=== PATIENT | female | born 1980 | race Caucasian/White ===

== ENCOUNTER 2024-03-01 02:59 | Emergency (ER) | payer OTHER, SELFPAY ==
[2024-03-01 03:01] VITALS: BP 108/66
[2024-03-01 03:40] VITALS: BMI 19.3
[2024-03-01 03:50] VITALS: BP 106/80
[2024-03-01 03:57] LABS: Urine Albumin Negative (Neg - Trace); Urine Bilirubin Negative (Negative); Urine Character Clear (Clear); Urine Color Yellow; Urine Glucose Negative (Negative); Urine Ketone Negative (Negative); Urine Leukocyte Negative (Negative); Urine Nitrite Negative (Negative); Urine Occult Blood 2+ (Negative); Urine Specific Gravity 1.015 (<1.030); Urine Urobilinogen Negative (Neg - 1+)
[2024-03-01 03:57] LABS: % Basophils 0.7 % (0-2); % Eosinophils 0.9 % (0-6); % Immature Granulocytes 0.4 % (0-0.5); % Lymphocytes 19.7 % (20.5-51.1); % Neutrophils 72.3 % (42.2-75.2); Absolute Basophils 0.1 10^3/uL (0-0.2); Absolute Eosinophils 0.1 10^3/uL (0-0.7); Absolute Lymphocytes 1.4 10^3/uL (1.2-3.4); Absolute Monocytes 0.4 10^3/uL (0.1-0.6); Hematocrit 34.5 % (37.0-47.0); Hemoglobin 12.2 g/dL (12.0-16.0); Mean Corp Hgb Conc. 35.4 g/dL (33.0-37.0); Mean Corpuscular Hgb 28.7 pg (27.0-31.0); Mean Corpuscular Volume 81.2 fL (81.0-99.0); Mean Platelet Volume 10.7 fL (7.4-10.4); Nucleated Red Blood Cells % 0 %; Platelet Count 252 10^3/uL (130-400); Red Blood Cell Count 4.25 10^6/uL (4.20-5.40); Red Cell Dist. Width 13.3 % (11.5-14.5); White Blood Cell Count 6.9 10^3/uL (4.8-10.8)
--- NOTE | 2024-03-01 03:58 | EDRN ---
Pt did not eat lunch yesterday. Pt developed abdominal pain around her belly button up to mid abdomen around [id number]. Pt thought it might be from not eating lunch. For dinner, pt ate corn, quinoa salad and a cheeseburger. Eating did not
alleviate abdominal discomfort. Pain was minimal throughout the day with no n/v. Pt was watching a movie around 0130 when pain increased and felt like labor contractions and pt felt nauseous and broke into a sweat. Pt tried to go to bed but pain
was too intense. Pain is worse when she stands. Pain waxes and wanes, dull pressure when it lessens and like labor contractions when pain intensifies. Pt has been passing gas. Pt denies cp, sob, nausea now, vomiting, diarrhea/constipation,
urinary symptoms, fever/cough, change in appetite.
[2024-03-01 03:59] LABS: HCG, Urine Qualitative Screen Negative
[2024-03-01 04:15] LABS: ALT (SGPT) 20 U/L (0-35); AST (SGOT) 28 U/L (14-36); Albumin 4.3 g/dl (3.5-5.0); Alkaline Phosphatase 44 U/L (38-126); Blood Urea Nitrogen 23 mg/dl (7-17); Calcium 9.3 mg/dl (8.4-10.2); Carbon Dioxide 28 mmol/L (22-30); Chloride 106 mmol/L (98-107); Estimated Creatinine Clearance 69 ml/min; Glucose 103 mg/dl (70-99); Lipase 182 U/L (23-300); Sodium 139 mmol/L (135-145); Total Bilirubin 1.7 mg/dl (0.2-1.3); Total Protein 6.5 g/dl (6.3-8.2); eGFR > 60.00
[2024-03-01 04:23] LABS: Urine Squamous Cell 16-20 /LPF (Few)
[2024-03-01 04:24] LABS: Urine Bacteria Few (Negative); Urine Red Blood Cell 0-2 /HPF (0-2); Urine White Cell 0-2 /HPF (0-5)
--- NOTE | 2024-03-01 04:40 | ED.GENMED ---
History of Present Illness
<IVY Ellis - Last Filed: 03/01/24 06:17>
General
Chief Complaint: Abdominal Pain
Source: patient
Exam Limitations: none
Time Seen by Provider: 03/01/24 04:40
Nursing documentation reviewed up to this point in time: agreed with
History of Present Illness
History of Present Illness:
43 year old female presents for evaluation of abdominal pain. Pt reports that her sx began 12 hours ago and have gradually worsened. She was awoken from sleep at 0130 on 03/01 due to the pain. Pt describes her pain as a tightness in her epigastric
region as well as RLQ, and currently rates her pain as 6/10. Pain is slightly relieved by lying supine, and is not exacerbated with meals. Pt has not tried any medications for her sx. She admits to associated intermittent nausea but denies vomiting.
Pt also denies constipation, diarrhea, fever, anorexia, chills, fatigue, and fever.
Review of Systems
<IVY Ellis - Last Filed: 03/01/24 06:17>
Review of Systems
Allergies reviewed?: Yes
Constitutional: Reports no symptoms
EENT: Reports no symptoms
Respiratory: Reports no symptoms
Cardiac: Reports no symptoms
ABD/GI: Reports abdominal pain (epigastric and RLQ) and nausea
: Reports no symptoms
Musculoskeletal: Reports no symptoms
Skin: Reports no symptoms
Neurological: Reports no symptoms
Endocrine: Reports no symptoms
Hematologic/Lymphatic: Reports no symptoms
Psychiatric: Reports no symptoms
Phy Exam
<IVY Ellis - Last Filed: 03/01/24 06:17>
General Physical Exam
General Presentation: well appearing and no apparent distress
General age: appears stated age
General Skin: warm
General Habitus: normal
General Mental: alert
General Hydration: appears well hydrated
Cardiovascular Exam
Cardiovascular Exam: regular rate/rhythm and no murmur
Pulmonary Exam
Pulmonary Exam: lungs clear and no respiratory distress
Gastrointestinal Exam
Gastrointestinal Exam: normal bowel sounds, non distended, no masses and tender (TTP of epigastric region as well as RLQ)
Palpation: right lower quadrant: Mild tenderness
Auscultation of Abdomen: normal
Neurological Exam
Neurological Exam: alert and oriented x3
Skin Exam
Skin Exam: normal color and warm/dry
Course
<ST CalebWI - Last Filed: 03/01/24 06:17>
Orders/Labs/Results
Orders:
Orders
03/01/24 03:38
IV Insert/Care/Rem.- Treatment PRN
03/01/24 03:39
Test Result ONCE
03/01/24 03:40
HCG, Urine Qualitative Screen Urgent
Date Specimen was Collected: 03/01/24
Time Specimen was Collected: 03:39
Urinalysis Reflex To Culture Urgent
Date Specimen was Collected: 03/01/24
Time Specimen was Collected: 03:39
Urine Microscopic Reflex Cult Urgent
03/01/24 03:46
Complete Blood Count/With Diff Urgent
Comprehensive Metabolic Panel Urgent
Lipase Urgent
03/01/24 05:02
CT Abd/pelvis W Iv Cont Urgent
Comment:
Reason For Exam: acute upper abd pain rad to RLQ
Abnormal Lab Results
03/01/24 03/01/24
03:40 03:46
Hct 34.5 L %
(37.0-47.0)
MPV 10.7 H fL
(7.4-10.4)
Lymphocytes % 19.7 L %
(20.5-51.1)
BUN 23 H mg/dl
(7-17)
Glucose 103 H mg/dl
(70-99)
Total Bilirubin 1.7 H mg/dl
(0.2-1.3)
Ur Occult Blood Reflex 2+ A
(Negative)
Urine Bacteria (Reflex) Few A
(Negative)
03/01/24 03:46
03/01/24 03:46
Vital Signs
Initial and Last Documented VS:
Initial Vital Signs
Temp Pulse Resp BP Pulse Ox
98.3 F 68 22 108/66 100
03/01/24 03:01 03/01/24 03:01 03/01/24 03:01 03/01/24 03:01 03/01/24 03:01
Last Documented Vital Signs
Temp Pulse Resp BP Pulse Ox
98.3 F 64 16 91/57 97
03/01/24 03:01 03/01/24 05:53 03/01/24 05:53 03/01/24 05:53 03/01/24 05:53
<Bouchra Soliz DO - Last Filed: 03/01/24 06:18>
Orders/Labs/Results
Orders:
Orders
03/01/24 03:38
IV Insert/Care/Rem.- Treatment PRN
03/01/24 03:39
Test Result ONCE
03/01/24 03:40
HCG, Urine Qualitative Screen Urgent
Date Specimen was Collected: 03/01/24
Time Specimen was Collected: 03:39
Urinalysis Reflex To Culture Urgent
Date Specimen was Collected: 03/01/24
Time Specimen was Collected: 03:39
Urine Microscopic Reflex Cult Urgent
03/01/24 03:46
Complete Blood Count/With Diff Urgent
Comprehensive Metabolic Panel Urgent
Lipase Urgent
03/01/24 05:02
CT Abd/pelvis W Iv Cont Urgent
Comment:
Reason For Exam: acute upper abd pain rad to RLQ
Abnormal Lab Results
03/01/24 03/01/24
03:40 03:46
Hct 34.5 L %
(37.0-47.0)
MPV 10.7 H fL
(7.4-10.4)
Lymphocytes % 19.7 L %
(20.5-51.1)
BUN 23 H mg/dl
(7-17)
Glucose 103 H mg/dl
(70-99)
Total Bilirubin 1.7 H mg/dl
(0.2-1.3)
Ur Occult Blood Reflex 2+ A
(Negative)
Urine Bacteria (Reflex) Few A
(Negative)
03/01/24 03:46
03/01/24 03:46
Vital Signs
Initial and Last Documented VS:
Initial Vital Signs
Temp Pulse Resp BP Pulse Ox
98.3 F 68 22 108/66 100
03/01/24 03:01 03/01/24 03:01 03/01/24 03:01 03/01/24 03:01 03/01/24 03:01
Last Documented Vital Signs
Temp Pulse Resp BP Pulse Ox
98.3 F 64 16 91/57 97
03/01/24 03:01 03/01/24 05:53 03/01/24 05:53 03/01/24 05:53 03/01/24 05:53
<IVY Ellis - Last Filed: 03/01/24 06:17>
MDM/Problems Addressed
Differential Diagnosis Includes:
appendicitis, cholecystitis, gastritis, IBS, constipation
<IVY Ellis - Last Filed: 03/01/24 06:17>
*Critical Care Note
Total Time (30-74mins, 75-104mins- exclusive of procedures): Not Applicable
<Bouchra Soliz DO - Last Filed: 03/01/24 06:18>
*Radiology
Radiology exam reviewed: radiology read reviewed (CAT scan shows normal appendix. No bowel obstruction. Gastric and small bowel wall thickening suggesting gastroenteritis.)
*Pulse Oximetry
Patient hypoxic: no
*Critical Care Note
Total Time (30-74mins, 75-104mins- exclusive of procedures): Not Applicable
ED Attending Note
<IVY Ellis - Last Filed: 03/01/24 06:17>
-
Portions of this chart may have been created with voice recognition software.� Occasional wrong word or��sound alike� substitutions may have occurred due to the inherent limitations of voice recognition software.
<Bouchra Soliz DO - Last Filed: 03/01/24 06:18>
ED Attending Note
Patient seen and examined by attending physician: Yes
ED Attending Note:
This is a 43-year-old woman who has no significant past medical history complains of mid abdominal pain that began mildly yesterday late afternoon. Initially thought that she was just hungry but no change in pain after eating. Pain worsened 1:00
this morning, cramping in nature generalized mid upper abdomen as well as occasionally to her right lower quadrant. Persistent in nature accompanied with nausea without vomiting. No back pain or flank pain. No diarrhea nor constipation. She did
pass a normal bowel movement yesterday evening without change in pain.
No history of similar episodes of pain.
She has not taken anything for discomfort.
Currently has her menstrual period that is ending. Normal and on time. Denies risk of .
Surgical history notable for 3 prior C-sections.
GENERAL: 43-year-old woman appears her stated age, awake and alert, pleasant, appears in no acute distress. is accompanying.
EYE: anicteric
NECK: Supple, nontender, no meningismus, no significant adenopathy.
ENT: oral mucosa is moist. No rhinorrhea.
CARDIAC: Regular rate and rhythm. no murmur.
LUNGS: Clear breath sounds bilaterally, no acute respiratory distress, no wheezes/rales/rhonchi
ABDOMEN: Soft, nondistended, mild tenderness periumbilical and epigastric region with deep palpation only. No palpable masses. No r/g, no cvat. normoactive BS.
NEUROLOGICAL: Alert and oriented x3, no focal neuro deficits. Gait is steady.
SKIN: Warm and dry, normal color, skin intact. No rash.
MUSCULOSKELETAL: No C/C/E. peripheral pulses are full and equal b/l. No palpable tenderness.
PSYCH: Normal and appropriate interaction.
Concern for acute gastritis, acute cholecystitis, acute colitis, small bowel obstruction, appendicitis.
Currently feels comfortable. Labs are
Unremarkable save for mildly elevated bilirubin of 1.7. All other LFTs within normal limits. hCG is negative.
Urinalysis is unremarkable.
Will plan for CT abdomen pelvis with IV contrast.
03/01/2024 0618 AM
Patient continues to appear comfortable.
CAT scan consistent with acute gastroenteritis.
Recommend supportive measures, limiting diet to clear liquids this morning, slowly advance to soft bland food.
A prescription for Zofran has been provided for as needed nausea.
Prompt follow-up with PCP for recheck.
Discharge Plan
Departure
Patient Disposition: Home (Routine Discharge)
Date of Disposition: 03/01/24
Time of Disposition: 06:15
Patient with high blood pressure during this ER visit?: No
Condition: Good
Discharge Problem:
Acute gastroenteritis
Instructions: Viral gastroenteritis in adults, Clear Liquid Diet
Prescriptions:
New
ondansetron 4 mg tablet,disintegrating
4 mg PO QID PRN (Reason: nausea and vomiting) Qty: 20 0RF
Referrals:
George Renee MD [Family Provider] - Call in 1-3 days for appt
Interventions
Interventions:
*Risk Screen - Suicide Last Done: 03/01/24 03:01
*General Assessment Last Done: 03/01/24 03:42
*Neglect/Abuse Screening Last Done: 03/01/24 03:01
ED- Fall Risk Assessment Last Done: 03/01/24 03:55
*ED COVID-19 Vaccine History Last Done: 03/01/24 03:42
RY-Dmskwv-Hvvnpdrjsh Assessment Last Done: 03/01/24 03:55
Discharge Date and Time
Print Language: SLOVAK
[2024-03-01 05:53] VITALS: BP 91/57
== END 2024-03-01 06:31 | disposition home or self-care (01) ==
LOC: EMR 02:59
PROVIDERS: EMERGENCY PHYSICIAN Emergency Medicine; FAMILY PHYSICIAN Family Medicine
DX: K52.9 Noninfective gastroenteritis and colitis, unspecified (principal)
CPT/HCPCS: 99285; 74177; 80053; 81003; 81015; 81025; 83690; 85025; Q9967